=== PATIENT | male | born 1960 | race Caucasian/White ===

== ENCOUNTER 2016-11-10 09:32 | Inpatient (IN) ==
[2016-11-10 11:40] LABS: ALLEN TEST YES; BE -3.8 mmoll (-3.0-3.0); BLOOD TYPE ARTERIAL; DRAW SITE R RADIAL; METHB 1.4 % (0.0-1.5); O2(CT) 13.6 mL/dL (15.0-23.0); PCO2(98.6) 34 mmHg (35-45); PO2(98.6) 75 mmHg (60-100); SAMPLE BLOOD; THB 10.5 g/dL (11.5-17.4); pH(98.6) 7.39 (7.35-7.45)
[2016-11-10 11:41] LABS: MODALITY ROOM AIR
[2016-11-10] MEDS ORDERED: DUONEB (A & A) INH PRN (11:49)
[2016-11-10 11:53] LABS: URINE SOURCE CLEAN CATCH
[2016-11-10 11:56] LABS: HEMATOCRIT 32.4 % (42.0-52.0); HEMOGLOBIN 10.9 g/dL (14.0-18.0); MCHC 33.6 g/dL (33-37); MCV 104.2 FL (81-99); MPV 10.8 FL (7.4-10.4); RBC 3.11 XMIL (4.7-6.1)
[2016-11-10 12:08] LABS: BILIRUBIN URINE NEGATIVE (NEGATIVE); BLOOD URINE MODERATE (NEGATIVE); COLOR ORANGE; GLUCOSE URINE NEGATIVE (NEGATIVE); LEUKOCYTES URINE LARGE (NEGATIVE); NITRITE URINE POSITIVE (NEGATIVE); PROTEIN URINE 50 mg/dL (NEGATIVE); SP GRAVITY URINE 1.014; TURBIDITY URINE TURBID (CLEAR); UR EPITHELIAL CELLS <10 /HPF (<10); URINE BACTERIA 4+ /HPF; URINE CULTURE NEEDED? YES; URINE MICRO REVIEW NEEDED? YES; URINE RBC TNTC /HPF (<10); URINE WBC TNTC /HPF (<10); UROBILINOGEN URINE NORMAL (NORMAL)
[2016-11-10 12:09] LABS: INR 1.06; PROTIME 11.2 Seconds (9.2-11.7); PTT 30.3 Seconds (22.0-36.0)
[2016-11-10 12:13] LABS: ALBUMIN 3.4 g/dL (3.5-5.0); CALCIUM 9.1 mg/dL (8.8-10.2); POTASSIUM 4.7 mmol/L (3.5-5.1); TOTAL BILIRUBIN 1.04 mg/dL (0.20-1.00)
--- NOTE | 2016-11-10 12:19 | HISTORY AND PHYSICAL ---
PRIMARY CARE PHYSICIAN: Dr. Maggie Kingston. CHIEF COMPLAINT: Altered mental status. HISTORY OF PRESENT ILLNESS: Mr. Church is a 56-year-old, male with a history of cirrhosis of the liver secondary to HAYES, also a history of type 2 diabetes, chronic pain, and obesity who presents directly from Dr. Maggie Kingston's office with altered mental status. The patient states that over the past 4 days or so, he has had worsening confusion. He has been dropping pencils, forks, etc., falling asleep easily and is difficult to arouse. He came to Dr. Kingston's office today who felt that he was experiencing hepatic encephalopathy and directly admitted him to our service. Currently, labs and diagnostics are pending. The patient does report some left upper and lower quadrant abdominal tenderness to palpation but this is chronic. He also reports worsening abdominal girth and weight gain. He denies any chest pain or shortness of breath. No fever or chills. He did have some dysuria a few days back but he felt that this was resolved. He also reports chronic lower extremity edema. We are currently awaiting labs and diagnostics. He is going to be admitted for further treatment and evaluation. PAST MEDICAL HISTORY: 1. Cirrhosis of the liver secondary to HAYES. 2. Splenomegaly. 3. Type 2 diabetes. 4. Chronic pain, on narcotic therapy. 5. Hyperlipidemia. 6. Hypertension. 7. History of TIAs. 8. Gout. PAST SURGICAL HISTORY: He has had an appendectomy, laparoscopic cholecystectomy , hernia repair, teeth extraction, tonsillectomy, robotic assisted laparoscopic left partial nephrectomy with cyst excision. SOCIAL HISTORY: Patient smokes a pack a day. He denies alcohol or drug use. He is . is at the bedside. FAMILY HISTORY: Father from myocardial infarction. Mother from "natural causes" but she did have ESRD. REVIEW OF SYSTEMS: Fourteen-point review of systems obtained and found to be negative with the exception of the HPI. HOME MEDICATIONS: Currently being compiled. ALLERGIES: No known drug allergies. PHYSICAL EXAMINATION: VITAL SIGNS: Blood pressure 108/54, heart rate 88, respiratory rate 17, O2 saturation at 92% on room air. Temperature is 99.3 degrees. GENERAL: This is a morbidly obese, male, lying in the hospital bed in no acute distress. NEUROLOGIC: The patient is awake, somewhat lethargic. He is mildly confused to the year but answers all other orientation questions correctly. He does have some trouble with rapid alternating movements. There is some asterixis and tremor noted in the upper extremities. No focal deficits are noted. HEENT: Head is atraumatic and normocephalic. His pupils are equal, round, and reactive to light. There is perhaps some very mild icterus to the sclerae. His oral mucosa is a bit dry and pale. Trachea is midline. CHEST: Clear to auscultation bilaterally. CV: Regular rate and rhythm. S1 and S2 are noted. A 2/6 systolic ejection murmur noted. GI: Obese and slightly distended. He has left upper quadrant and lower quadrant tenderness to palpation. Bowel sounds are hypoactive. EXTREMITIES: With 1 to 2+ pitting edema bilaterally. DIAGNOSTIC DATA: Pending. ASSESSMENT AND PLAN: 1. Encephalopathy: Likely multifactorial. we are going to check an ABG and a head CT, as well as a full complement of lab data. We will make sure and check ammonia and thyroid function, etc. We will monitor his neurological status and hold off on any pain medication for now. 2. Cirrhosis of the liver: The patient does have worsening abdominal girth. We are going to check an abdominal ultrasound for paracentesis and sent off for paracentesis labs. Given his probable hepatic encephalopathy, we may need to either start him on or increase his dose of lactulose and add rifaximin if he is not already on these medicines. 3. Diabetes mellitus: We will check a hemoglobin A1c. Add patterned sugars and sliding scale insulin. 4. Hypertension: We will continue appropriate medications after we check a metabolic profile. 5. Nicotine dependence: Patient has been highly advised to quit smoking. We will add a nicotine patch and continue cessation education on a daily basis. 6. Deep venous thrombosis prophylaxis will depend on renal function. We will either add Lovenox or heparin. Dictated by ORLY Stephenson for Reginald Carrington MD cc: ORLY Stephenson MD Lindsay Smith I have seen and examined patient and I agree with the above evaluation and plan. chloe ANGELO
[2016-11-10 12:21] LABS: MAGNESIUM 1.9 mg/dL (1.5-2.7)
--- NOTE | 2016-11-10 12:29 | Diag Imaging Result Doc PS360 ---
EXAM: CHEST-PORTABLE HISTORY: ams TECHNIQUE: Portable upright AP COMPARISON: 05/27/2014 FINDINGS: The lungs are well expanded. Heart is not enlarged. The vessels are not distended. No pneumonia. No pleural effusions identified. IMPRESSION: Negative chest. Electronically signed by Aj Giron 11/10/2016 12:27 PM
--- NOTE | 2016-11-10 12:33 | Diag Imaging Result Doc PS360 ---
EXAM: HEAD W/O CONTRAST HISTORY: ams TECHNIQUE: Dose reduction protocol COMPARISON: 07/05/2013 FINDINGS: No parenchymal hemorrhage. No epidural or subdural hematoma. No subarachnoid hemorrhage. No mass identified on this noncontrasted exam. No hydrocephalus. No sinus opacification. IMPRESSION: No hemorrhage. Negative brain CT without contrast. Electronically signed by Aj Giron 11/10/2016 12:30 PM
[2016-11-10 14:23] LABS: UR CREAT RANDOM 109.1 mg/dL (14-26)
--- NOTE | 2016-11-10 14:30 | Diag Imaging Result Doc PS360 ---
EXAM: US ABDOMEN-COMPLETE HISTORY: ascites/cirrhosis TECHNIQUE: COMPARISON: 09/01/2016 FINDINGS: There is no ascites within the abdomen. Normal pancreatic body. Portions of the pancreatic head and tail are obscured. Normal inferior vena cava. No aneurysmal dilatation to the aorta. No focal hepatic abnormality. Normal right kidney. No hydronephrosis. There is a 2.6 cm cyst. Gallbladder has been removed. The common bile duct measures 5 mm. The spleen measures 17.3 cm. Normal left kidney. No hydronephrosis. There is a 2.0 cm cyst. IMPRESSION: 1.No ascites 2.Mild splenomegaly 3.Small renal cysts 4.Cholecystectomy Electronically signed by Aj Giron 11/10/2016 2:28 PM
[2016-11-10 14:35] LABS: UR AMPHETAMINES QUAL NONE DETECTED (NONE DETECT); UR BARBITUATES QUAL NONE DETECTED (NONE DETECT); UR BENZODIAZEPIN QUAL NONE DETECTED (NONE DETECT); UR CANNABINOIDS QUAL NONE DETECTED (NONE DETECT); UR COCAINE QUAL NONE DETECTED (NONE DETECT); UR METHADONE QUAL NONE DETECTED (NONE DETECT); UR OPIATES QUAL PRESUMPTIVE POSITIVE (NONE DETECT); UR OXYCODONE QUAL NONE DETECTED (NONE DETECT); UR PCP QUAL NONE DETECTED (NONE DETECT)
[2016-11-10] MEDS: ROCEPHIN 1 GM/NS 1 GM/50 ML IVPB IV SCH (15:09)
[2016-11-10] MEDS: XIFAXAN PO SCH ×2 (15:09→21:17)
[2016-11-10] MEDS: NICODERM PATCH TD SCH (15:09)
[2016-11-10] MEDS: LACTULOSE PO SCH ×2 (15:09→21:17)
[2016-11-10] MEDS: HUMALOG SUBQ SCH ×2 (17:15→21:18)
[2016-11-10] MEDS: NS 1,000 ML IV SCH (17:49)
[2016-11-10] MEDS: REQUIP PO SCH (21:23)
[2016-11-11] MEDS: NS 1,000 ML IV SCH ×3 (04:55→17:48)
[2016-11-11] MEDS: HUMALOG SUBQ SCH ×3 (06:19→16:39)
[2016-11-11 06:59] LABS: CALCIUM 9.3 mg/dL (8.8-10.2); POTASSIUM 4.3 mmol/L (3.5-5.1)
[2016-11-11 07:03] LABS: HEMOGLOBIN A1C 5.8 % (4.8-6.0)
[2016-11-11] MEDS: XIFAXAN PO SCH (08:09)
[2016-11-11] MEDS: NICODERM PATCH TD SCH (08:09)
[2016-11-11] MEDS: REQUIP PO SCH (08:09)
[2016-11-11] MEDS: LACTULOSE PO SCH (09:02)
[2016-11-11] MEDS: ROCEPHIN 1 GM/NS 1 GM/50 ML IVPB IV SCH (12:52)
--- NOTE | 2016-11-11 15:11 | PROGRESS NOTE ---
DATE: 11/11/2016 SUBJECTIVE: Today Mr. Church referred to be doing a whole lot better. Mentation has significantly improved. However, he complains of significant lower back pain. OBJECTIVELY: Vitals: Blood pressure is 120/50, pulse is 65, respirations 20, temperature 98.2 degrees. General: Mr. Church is a 56-year-old morbidly obese, male. He is in bed, not seemingly distressed. HEENT: Mucosa is pink and moist. Anicteric. Acyanotic. Neck: Supple. Chest: Clear. Cardiovascular: Regular rate and rhythm. Abdomen: Distended, but nontender. Bowel sounds are present. There is not any fluid shift. Extremities: 1+ pedal edema bilateral. 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 There is no focal neurological deficit. LABORATORY DATA: Chemistry: Sodium is 141, potassium is 4.3, chloride is 105, bicarb is 23, BUN is 37, creatinine is down to 1.9. So far urine culture is showing gram-negative jossy. ASSESSMENT: 1. Acute altered mental status secondary to toxic metabolic encephalopathy. 2. Gram-negative urinary tract infection. 3. Possible prescription drug side effects (patient is on morphine, gabapentin, which I think with the renal failure it probably accumulated more in his blood stream and made him confound the altered mentation. 4. History of cirrhosis of the liver. However, there is no ascites. 5. Diabetes mellitus. Stable. 6. Chronic back pain. 7. Acute kidney injury. Creatinine continues to improve. We will continue with gentle hydration since patient seems to be clinically volume depleted. PLAN: 1. So for now Mr. Church's mentation has significantly improved. We will going to start him back on a lower dose of his gabapentin and also his morphine which he has been on that for a very long time. We will keep a very close eye on his vitals. We will be pending the Infectious Disease and sensitivity of the gram-negative rods today and we will continue with the gentle hydration and recheck on his renal functions for tomorrow. 2. We will also consult physical therapy to help with early ambulation and I advised the patient to sit up in the chair at least twice per day today. cc: Reginald Carrington MD
[2016-11-11] MEDS: NEURONTIN PO SCH (16:43)
[2016-11-11] MEDS ORDERED: MORPHINE IV ONE (20:44)
[2016-11-12] MEDS: REQUIP PO SCH ×2 (00:06→08:59)
[2016-11-12] MEDS: XIFAXAN PO SCH ×2 (00:06→08:59)
[2016-11-12] MEDS: LACTULOSE PO SCH ×2 (00:06→08:59)
[2016-11-12] MEDS: MS CONTIN PO SCH ×2 (00:06→08:59)
[2016-11-12] MEDS: NS 1,000 ML IV SCH (00:07)
[2016-11-12] MEDS: HUMALOG SUBQ SCH ×3 (06:32→12:46)
[2016-11-12 06:56] LABS: MANUAL DIFF NEEDED? NO
[2016-11-12 07:08] LABS: BASO% 0.4 % (0.0-0.8); EOS# 0.08 X1000 (0.0-0.7); EOS% 1.1 % (0.0-10.0); HEMATOCRIT 32.6 % (42.0-52.0); HEMOGLOBIN 11.2 g/dL (14.0-18.0); IMM GRAN# 0.05 X1000 (0.0-0.04); IMM GRAN% 0.7 % (0.0-0.5); LYMPH# 1.36 X1000 (1.2-3.4); LYMPH% 19.5 % (20.5-51.1); MCH 34.6 PG (27-31); MCHC 34.4 g/dL (33-37); MCV 100.6 FL (81-99); MONO% 11.5 % (1.7-9.3); MPV 11.2 FL (7.4-10.4); NEUT% 66.8 % (42.2-75.2); PLT 100 X1000 (130-400); RBC 3.24 XMIL (4.7-6.1)
[2016-11-12 07:30] LABS: CALCIUM 8.8 mg/dL (8.8-10.2); POTASSIUM 4.2 mmol/L (3.5-5.1)
[2016-11-12] MEDS: NICODERM PATCH TD SCH (08:59)
[2016-11-12] MEDS: NEURONTIN PO SCH (08:59)
[2016-11-12 12:01] VITALS: BP 124/63
--- NOTE | 2016-11-12 14:27 | PROGRESS NOTE ---
DATE: 11/12/2016 SUBJECTIVE: Today, Mr. Church referred to be doing fine. He is completely alert and oriented. Denies any complaints. He is going to be discharged home. OBJECTIVE: Vital signs: Blood pressure is 124/63, pulse of 62, respirations 21,temperature 97.8 degrees. General: Mr. Church is a 56-year-old male morbidly obese. He was in bed. Not in any distress. HEENT: Mucosa is pink and moist. Anicteric. Acyanotic. Neck: Supple. Chest: Clear. Cardiovascular: Regular rate and rhythm. Abdomen: Soft, distended, but nontender. There is no fluid shift. Extremities: No pedal edema. 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 There is no focal neurological deficit. LABORATORY DATA: WBC is 6.97. Hemoglobin is 11.2, platelet count of 100,000. Chemistry is reviewed. Sodium 141, potassium 4.2, chloride 107, bicarbonate 22, creatinine is down to 1.3 which seems to be the patient's baseline from 2014. Urine culture is now positive for Escherichia coli UTI which is sensitive to cefazolin so we will change to cephalexin. ASSESSMENT: 1. Altered mental status secondary to toxic metabolic encephalopathy. 2. Escherichia coli urosepsis. 3. Possible prescription drug side effects. 4. Acute on chronic renal failure. 5. Chronic pain syndrome. 6. Diabetes mellitus. Stable. 7. History of cirrhosis of the liver without ascites. PLAN: In general, Mr. Church is doing fine. We have changed ceftriaxone to cephalexin for the E. coli UTI. We have also withheld patient's lisinopril and hydrochlorothiazide because of the worsening of the renal failure when he came in. He is advised to follow up with his primary care doctor to see when those medication can be reintroduced into his medication list. He is also advised to follow up with Dr. Blood for the UTI in a male, which is not very common, to make sure he does not have any prostate abnormalities. Please refer to the details of the discharge summary in his chart. cc: Reginald Carrington MD
[2016-11-12] MEDS ORDERED: KEFLEX PO SCH (21:00)
--- NOTE | 2016-11-12 21:45 | DISCHARGE SUMMARY ---
ADMISSION DATE: 11/10/2016 DISCHARGE DATE: 11/12/2016 CONSULTATIONS: None PERTINENT PROCEDURES: 1. Chest x-ray negative. 2. Abdominal ultrasound showed no ascites, mild splenomegaly, small renal cysts , cholecystectomy. 3. Head CT showed no hemorrhage. Negative brain CT without contrast. DISCHARGE DIAGNOSES: 1. Acute altered mental status secondary to toxic metabolic encephalopathy. Resolved. 2. Gram-negative urinary tract infection. Patient will continue on p.o. antibiotics. 3. Possible prescription drug side effects. Patient is on morphine, gabapentin secondary to patient's acute renal failure accumulating in the patient's blood stream making him with altered mentation, now resolved. 4. Cirrhosis of the liver history stable. 5. Diabetes mellitus stable. 6. Chronic pain stable. 7. Acute kidney injury improved with gentle hydration. HOSPITAL COURSE: Mr. Church is a 56-year-old male with a history of cirrhosis of the liver secondary to HAYES, type 2 diabetes, chronic pain, obesity who presented directly from Dr. Brea Kingston's office with altered mental status. The patient stated that over the last 4 days he has had worsening confusion. He had been dropping things, falling asleep easily and difficult to arouse. He came to Dr. Kingston's office who felt that he was experiencing hepatic encephalopathy and directly admitted him to the hospitalist service. He had a chest x-ray that was negative, an abdominal ultrasound that showed no ascites, mild splenomegaly, small renal cysts and cholecystectomy. Negative head CT. His ammonia level was acceptable at 25. He did have a creatinine of 2.9. He did have nitrite positive, 4+ bacteria urinalysis. His urine culture grew out E. coli. Blood cultures are negative. He was started on IV fluids for gentle hydration as well as IV antibiotics. Mr. Church's mentation significantly improved. He was started back in the hospital on lower doses of his gabapentin as well as his morphine. He has been transitioned from IV to p.o. antibiotics. Physical Therapy was consulted to help with early ambulation. The patient was encouraged to sit up in a chair. Dr. Carrington assessed the patient and feels he is appropriate for discharge home today. He will be discharged home with his . VITAL SIGNS: Temperature is 97.8 degrees, heart rate 60, respirations 20, blood pressure is 124/63, O2 is 98% on room air. DISCHARGE DIET: Hepatic. DISCHARGE MEDICATIONS: 1. Keflex 500 mg p.o. q.12 hours for 7 days. 2. Neurontin 100 mg p.o. t.i.d. 3. Glipizide 5 mg p.o. daily. 4. Lactulose 30 mg p.o. daily. 5. Metformin ER 1000 mg p.o. q.a.m. 6. Metformin 500 mg p.o. at bedtime. 7. Morphine sulfate ER 30 mg p.o. b.i.d. 8. Requip 1 mg p.o. at bedtime. 9. Requip 10 mg p.o. q.a.m. 10. Zocor 20 mg p.o. at bedtime. FOLLOW-UP: 1. Mr. Church is being discharged home with his . He can follow up with his primary care physician, Dr. Brea Kingston, in 1-2 weeks. 2. Return to the ED for any worsening of symptoms. DISCHARGE INSTRUCTIONS: Take all antibiotics as prescribed. DISCHARGE TIME: 30 minutes. Dictated by ORLY Romero for Reginald Carrington MD cc: MD Brea Negro MTDD
== END 2016-11-12 13:32 | disposition home or self-care (01) ==
LOC: DIRADM 09:32 → 3N 10:14
PROVIDERS: ATTEND Internal Medicine